=== PATIENT | female | born 1950 | race Caucasian/White ===

== ENCOUNTER 2024-04-09 09:49 | Emergency (ER) | payer MEDICARE, OTHER, SELFPAY ==
[2024-04-09 09:56] VITALS: BP 163/104
--- NOTE | 2024-04-09 10:38 | ED.GENMED ---
History of Present Illness
General
Chief Complaint: Skin Surface Trauma
Source: patient
Time Seen by Provider: 04/09/24 10:30
History of Present Illness
History of Present Illness:
73yoF with a history of hypertension, hyperlipidemia, seizures, and hypothyroidism presenting for evaluation of a left lower leg wound. 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 She has been cleaning the area regularly.
She started to noticed a small amount of surrounding redness yesterday. She went to urgent care to try to get antibiotics. X-rays were done at urgent care which were reportedly normal. She was told to go to the ED for evaluation. She has no fevers
or chills and she feels otherwise well. No history of MRSA. No history of diabetes. She had a tetanus shot yesterday at the pharmacy.
Past History
Past History
ED Past Medical History: HTN
ED Past Surgical History: Gynecological
Social History
Tobacco: Non-smoker
Phy Exam
General Physical Exam
General Presentation: well appearing and no apparent distress
General age: appears stated age
General Skin: warm and dry
General Habitus: normal
General Mental: alert
Cardiovascular Exam
Cardiovascular Exam: regular rate/rhythm and no edema
Pulmonary Exam
Pulmonary Exam: lungs clear, no respiratory distress, no crackles and no wheezing
Skin Exam
Skin Exam: warm/dry and other (Wound with central scabbing noted to anterior L lower leg with a small amount of surrounding erythema and warmth. No drainage, fluctuance, crepitus, or pain out of proportion. 2+ DP pulse. )
Psychiatric Exam
Psychiatric Exam: normal mood/affect
Course
Vital Signs
Initial and Last Documented VS:
Initial Vital Signs
Temp Pulse Resp BP Pulse Ox
99.3 F 66 18 163/104 97
04/09/24 09:56 04/09/24 09:56 04/09/24 09:56 04/09/24 09:56 04/09/24 09:56
Last Documented Vital Signs
Temp Pulse Resp BP Pulse Ox
99.3 F 70 18 160/101 95
04/09/24 09:56 04/09/24 10:53 04/09/24 10:53 04/09/24 10:53 04/09/24 10:53
MDM/Problems Addressed
Differential Diagnosis Includes:
73yoF here with a L lower leg wound that started to have redness yesterday. Sent here by urgent care. No fevers or chills. She is afebrile and hemodynamically stable. She is well appearing in no distress. There is a wound noted on exam with a small
amount of surrounding cellulitis. No evidence of abscess, lymphangitis, or NSTI. No SIRS criteria met.
X-rays at urgent care reportedly normal. No indication for labs at this time. Will start on Keflex. Home wound care discussed. Advised f/u with PCP and wound care. ED return precautions discussed including spreading redness and fevers. She expressed
understanding and is agreeable to plan. Patient discharged in stable condition.
*Critical Care Note
Total Time (30-74mins, 75-104mins- exclusive of procedures): Not Applicable
ED Attending Note
-
Portions of this chart may have been created with voice recognition software.� Occasional wrong word or��sound alike� substitutions may have occurred due to the inherent limitations of voice recognition software.
Discharge Plan
Departure
Patient Disposition: Home (Routine Discharge)
Date of Disposition: 04/09/24
Time of Disposition: 10:40
Patient with high blood pressure during this ER visit?: Yes
Discharge Problem:
Wound of left lower extremity
Instructions: Wound Care (DC)
Prescriptions:
New
cephalexin 500 mg capsule
500 mg PO Q6H Qty: 28 0RF
No Action
ondansetron 4 MG tablet,disintegrating
4 mg PO TIDPRN PRN (Reason: nausea) Qty: 7 1RF
cephalexin 500 MG capsule
500 mg PO QID Qty: 40 0RF
Rx Instructions:
one pill four times a day for 10 days
Referrals:
[facility] [[facility] -
Activity Restrictions/Additional Instructions:
Take antibiotics as prescribed. Keep wound clean and dry.
Please follow-up with your family doctor and wound care. Return to the ER with any worsening symptoms, spreading redness, fevers.
Interventions
Interventions:
*Risk Screen - Suicide Last Done: 04/09/24 09:56
*General Assessment Last Done: 04/09/24 09:56
*Neglect/Abuse Screening Last Done: 04/09/24 09:56
ED- Fall Risk Assessment Last Done: 04/09/24 10:56
*ED COVID-19 Vaccine History Last Done: 04/09/24 09:56
*Nursing Disposition Last Done: 04/09/24 10:56
ED-Skin Assessment Last Done: 04/09/24 10:53
Discharge Date and Time
Discharge Date/Time: 04/09/24 11:01
Print Language: FILIPINO
[2024-04-09 10:53] VITALS: BP 160/101
== END 2024-04-09 11:01 | disposition home or self-care (01) ==
LOC: EMR 09:49
PROVIDERS: EMERGENCY PHYSICIAN Emergency Medicine; FAMILY PHYSICIAN Nurse Practitioner
DX: S81.802A Unspecified open wound, left lower leg, initial encounter (principal); W22.8XXA Striking against or struck by other objects, initial encounter; I10 Essential (primary) hypertension; E78.5 Hyperlipidemia, unspecified; E03.9 Hypothyroidism, unspecified; R56.9 Unspecified convulsions
CPT/HCPCS: 99283

== ENCOUNTER 2024-09-19 14:18 | Emergency (ER) | payer MEDICARE, OTHER, SELFPAY ==
[2024-09-19] VITALS (8 sets, daily range): BP systolic 162–188; BP diastolic 92–113; BMI 29.7
[2024-09-19 14:38] LABS: % Basophils 0.8 % (0-2); % Eosinophils 2.1 % (0-6); % Immature Granulocytes 0.2 % (0-0.5); % Lymphocytes 21.9 % (20.5-51.1); % Monocytes 9.1 % (1.7-9.3); % Neutrophils 65.9 % (42.2-75.2); Absolute Basophils 0.1 10^3/uL (0-0.2); Absolute Eosinophils 0.1 10^3/uL (0-0.7); Absolute Lymphocytes 1.4 10^3/uL (1.2-3.4); Absolute Monocytes 0.6 10^3/uL (0.1-0.6); Absolute Neutrophils 4.3 10^3/uL (1.4-6.5); Hematocrit 42.1 % (37.0-47.0); Hemoglobin 13.9 g/dL (12.0-16.0); Mean Corpuscular Volume 90.9 fL (81.0-99.0); Mean Platelet Volume 9.6 fL (7.4-10.4); Nucleated Red Blood Cells % 0 %; Platelet Count 172 10^3/uL (130-400); Red Blood Cell Count 4.63 10^6/uL (4.20-5.40); White Blood Cell Count 6.6 10^3/uL (4.8-10.8)
[2024-09-19 14:58] LABS: ALT (SGPT) 13 U/L (0-35); AST (SGOT) 24 U/L (14-36); Albumin 4.6 g/dl (3.5-5.0); Alkaline Phosphatase 56 U/L (38-126); Blood Urea Nitrogen 16 mg/dl (7-17); Calcium 9.4 mg/dl (8.4-10.2); Carbon Dioxide 26 mmol/L (22-30); Chloride 105 mmol/L (98-107); Glucose 93 mg/dl (70-99); Lipase 139 U/L (23-300); Potassium 3.9 mmol/L (3.5-5.1); Sodium 141 mmol/L (135-145); Total Bilirubin 0.5 mg/dl (0.2-1.3); Total Protein 7.2 g/dl (6.3-8.2); eGFR > 60.00
[2024-09-19 15:04] LABS: Troponin I < 0.012 ng/ml
--- NOTE | 2024-09-19 16:46 | ED.GENMED ---
History of Present Illness
General
Chief Complaint: Chest Pain
Source: patient and family
Exam Limitations: none
Time Seen by Provider: 09/19/24 16:27
History of Present Illness
History of Present Illness:
73-year-old female presents with upper abdominal pain somewhat sharp in nature. Describes a stabbing-like pain worse with twisting and turning with some radiation of left side of the back. Has been going on for months. Was prescribed Prilosec by
the primary physician. Not related to eating. Also has had some ongoing nausea. Pain has been relatively constant the last 3 days. Not exertional. No diaphoresis no shortness of breath. No pleuritic pain.
Past History
Past History
ED Past Medical History: HTN, Hypercholesterolemia and Other (Seizure disorder)
ED Past Surgical History: Appendectomy, Gynecological and Other (Hemorrhoid surgery)
Social History
Tobacco: Non-smoker
Review of Systems
Review of Systems
All Other Systems: Not applicable
Constitutional: Denies fever or chills
Respiratory: Reports no symptoms
Cardiac: Reports no symptoms
Phy Exam
Physical Exam
Physical Exam:
GENERAL: Alert and oriented in no apparent distress
EYE: Orbits normal.
NECK: Supple, no significant adenopathy.
ENT: Pharynx without erythema
CARDIAC: Regular rate and rhythm without any obvious murmurs.
LUNGS: Clear breath sounds,normal
ABDOMEN: Soft, minimal epigastric tenderness. No rebound or guarding no mass or hernia. No CVA tenderness. No rash
NEUROLOGICAL: Alert and oriented , grossly non-focal
SKIN: Warm and dry, no rash or lesion, no discoloration, skin intact.
MUSCULOSKELETAL: No edema,no deformity.Good color
PSYCH: Normal and appropriate interaction.
Scores
Heart Score for Chest Pain Patients
STEMI patient?: Not applicable
Course
Orders/Labs/Results
Orders:
Orders
09/19/24 14:18
ECG [Electrocardiogram (*1)] Urgent
Reason for Study: Chest Pain
EKG- Treatment ONCE
09/19/24 14:32
Complete Blood Count/With Diff Urgent
Comprehensive Metabolic Panel Urgent
Lipase Urgent
Troponin I Urgent
09/19/24 16:42
IV Insert/Care/Rem.- Treatment PRN
0.9% Sodium Chloride 500 ml [Nss] 500 ml IV BOLUS
Ondansetron Injectable [Zofran] 4 mg IV NOW STA
09/19/24 16:45
CT Abd/Pel (IV only)-DH only Urgent
Comment:
Reason For Exam: Upper abdominal pain with some radiation to the ba
09/19/24 19:00
US Abdomen Limited Urgent
Comment:
Reason For Exam: Gallbladder distention. Upper abdominal pain.
09/19/24 21:21
Levetiracetam [Keppra] 1,000 mg PO NOW STA
09/19/24 22:29
Pantoprazole [Protonix IV] 40 mg IV NOW STA
09/19/24 22:31
Sterile Water [Sterile Water For Injection] 10 ml .ROUTE .STK-MED ONE
09/19/24 14:32
09/19/24 14:32
Vital Signs
Initial and Last Documented VS:
Initial Vital Signs
Temp Pulse Resp BP Pulse Ox
98.6 F 76 16 188/100 96
09/19/24 14:19 09/19/24 14:19 09/19/24 14:19 09/19/24 14:19 09/19/24 14:19
Last Documented Vital Signs
Temp Pulse Resp BP Pulse Ox
98.6 F 63 17 188/98 94
09/19/24 14:19 09/19/24 22:00 09/19/24 22:00 09/19/24 21:23 09/19/24 21:30
*Radiology
Radiology exam reviewed: radiology read reviewed (CT scan shows no acute findings. Mild intra and extrahepatic dilatation. Gallbladder distention. No other acute findings) and other (Ultrasound shows dilated gallbladder but no other acute
findings)
*Pulse Oximetry
Patient hypoxic: no
*Critical Care Note
Total Time (30-74mins, 75-104mins- exclusive of procedures): Not Applicable
Update Note
Update Note:
Patient's symptoms not consistent with a gallbladder issue. Not describing cardiac issues. Possible gastritis. Will treat with PPI to follow-up
ED Attending Note
-
Portions of this chart may have been created with voice recognition software.� Occasional wrong word or��sound alike� substitutions may have occurred due to the inherent limitations of voice recognition software.
Discharge Plan
Departure
Patient Disposition: Home (Routine Discharge)
Date of Disposition: 09/19/24
Time of Disposition: 22:27
Patient with high blood pressure during this ER visit?: Yes
Discharge Problem:
Upper abdominal pain/nausea
Instructions: Abdominal pain in adults - Discharge instructions, BLOOD PRESSURE, Acute Nausea and Vomiting
Prescriptions:
New
pantoprazole [Protonix] 40 mg tablet,delayed release (DR/EC)
40 mg PO DAILY 14 Days Qty: 14 0RF
ondansetron 4 mg tablet,disintegrating
4 mg PO TIDPRN PRN (Reason: nausea/vomiting) Qty: 10 0RF
No Action
ondansetron 4 MG tablet,disintegrating
4 mg PO TIDPRN PRN (Reason: nausea) Qty: 7 1RF
cephalexin 500 MG capsule
500 mg PO QID Qty: 40 0RF
Rx Instructions:
one pill four times a day for 10 days
cephalexin 500 mg capsule
500 mg PO Q6H Qty: 28 0RF
levetiracetam 1,000 mg Tablet
PO
Referrals:
Pauline Jaime MD [Active] - Next open appointment
Maria Elena Camargo MD [Family Provider] - Follow up in 2-3 days
Interventions
Interventions:
*Risk Screen - Suicide Last Done: 09/19/24 14:19
*General Assessment Last Done: 09/19/24 14:19
*Neglect/Abuse Screening Last Done: 09/19/24 17:30
*ED COVID-19 Vaccine History Last Done: 09/19/24 14:19
ED- Cardiac Assessment Last Done: 09/19/24 17:30
Discharge Date and Time
Print Language: MICRONESIAN
[2024-09-19] MEDS: ZOFRAN 4 MG IV (17:09)
[2024-09-19] MEDS: NSS 500 IV (17:09)
[2024-09-19] MEDS: KEPPRA 1000 MG PO (21:30)
[2024-09-19] MEDS: PROTONIX IV 40 MG IV (22:33)
== END 2024-09-19 23:19 | disposition home or self-care (01) ==
LOC: EMR 14:18
PROVIDERS: Emergency Medicine; EMERGENCY PHYSICIAN Emergency Medicine; FAMILY PHYSICIAN Internal Medicine
DX: R11.0 Nausea (principal); R10.10 Upper abdominal pain, unspecified; M54.9 Dorsalgia, unspecified; R07.9 Chest pain, unspecified; K82.8 Other specified diseases of gallbladder; I10 Essential (primary) hypertension; E78.00 Pure hypercholesterolemia, unspecified; G40.909 Epilepsy, unspecified, not intractable, without status epilepticus
CPT/HCPCS: 99285; 96375; 96361 ×2; 96374; 74177; 76705; 80053; 83690; 84484; 85025; 93005; Q9967